=== PATIENT | male | born 1940 | race Caucasian/White ===

== ENCOUNTER 2021-07-28 12:03 | Day surgery (SDC) | payer MEDICARE, OTHER ==
[2021-07-23 12:26] LABS: BASOPHILS % (AUTO) 0.5 % (0-1); EOSINOPHILS # (AUTO) 0.2 X10'3 (0-0.9); EOSINOPHILS % (AUTO) 3.7 % (0-6); HEMATOCRIT 39.9 % (42.0-52.0); HEMOGLOBIN 13.3 g/dl (14.0-17.9); LYMPHOCYTES # (AUTO) 1.8 X10'3 (1.1-4.8); LYMPHOCYTES % (AUTO) 28.3 % (21-51); MEAN CORPUSCULAR HEMOGLOBIN 29.9 PG (27.0-31.0); MEAN CORPUSCULAR HGB CONC 33.2 g/dL (33.0-36.5); MEAN PLATELET VOLUME 8.1 FL (7.4-10.4); MONOCYTES # (AUTO) 0.8 X10'3 (0-0.9); MONOCYTES % (AUTO) 12.6 % (2-12); NEUTROPHILS # (AUTO) 3.4 X10'3 (1.8-7.7); NEUTROPHILS % (AUTO) 54.9 % (42-75); PLATELET COUNT 232 X10'3 (140-440); RED BLOOD COUNT 4.43 X10'6 (4.70-6.10); RED CELL DISTRIBUTION WIDTH 14.7 % (11.5-14.5); WHITE BLOOD COUNT 6.3 X10'3 (4.5-11.0)
[2021-07-23 12:37] LABS: APTT 28 SECONDS (22-32)
[2021-07-23 12:45] LABS: ALANINE AMINOTRANSFERASE 19 U/L (12-78); ALBUMIN 3.9 G/DL (3.4-5.0); ALBUMIN/GLOBULIN RATIO 1.3 (1.1-1.5); ALKALINE PHOSPHATASE 72 IU/L (46-116); ANION GAP 16 (8-16); ASPARTATE AMINO TRANSFERASE 18 U/L (10-37); BILIRUBIN,TOTAL 0.5 MG/DL (0.1-1.0); BLOOD UREA NITROGEN 20 MG/DL (7-18); BUN/CREATININE RATIO 16.4 (5.4-32.0); CALCIUM 8.8 MG/DL (8.5-10.1); CHLORIDE 109 MMOL/L (99-107); CREATININE 1.22 MG/DL (0.60-1.10); GLUCOSE 101 MG/DL (70-104); POTASSIUM 4.8 MMOL/L (3.5-5.1); SODIUM 149 MMOL/L (135-145); TOTAL CARBON DIOXIDE 23.6 MMOL/L (24-32); TOTAL PROTEIN 6.9 G/DL (6.4-8.2); eGFR 57 ML/MIN
[~2021-07-28] VITALS: Ht 162.6 cm; Wt 67.2 kg
[2021-07-28] VITALS (15 sets, daily range): BP systolic 118–164; BP diastolic 73–88
[~2021-07-28 12:03] MED LIST: ALPR0.255 PO; CARV6.253 PO; CLOP75TA34 PO; FLUT1BLS4 INH; ISOS60TA71 PO; LOSA25TA41 PO; NITR0.4T48 SL; OMEP40CA21 PO; PITA4TAB2 PO; POTA-188 PO; SPIR25TA5 PO
[2021-07-28] MEDS ORDERED: diphenhydrAMINE 25mg capsule PO PRN (12:35)
[2021-07-28] MEDS ORDERED: normal saline 1,000 ML IV SCH (12:35)
[2021-07-28] MEDS ORDERED: nitroGLYCERIN 0.4mg SUBLingual tab SL PRN ×2 (12:35→16:45)
[2021-07-28] MEDS ORDERED: fentaNYL/PF 50MCG/1 ML 2ML syringe ONE (14:57)
[2021-07-28] MEDS ORDERED: midazolam 1 mg/ML 2ml injection ONE (14:57)
[2021-07-28] MEDS ORDERED: LIDOcaine 1% (10mg/ml)w/preservative injection 20ml MDV ONE (14:57)
[2021-07-28] MEDS ORDERED: iohexol 350MG/ML 100ml bottle IV ONE ×2 (14:58→15:53)
[2021-07-28] MEDS ORDERED: iohexol 350 MG/ML 50ML vial IV ONE ×2 (14:58→15:52)
--- NOTE | 2021-07-28 16:25 | NUR ---
Received pt from photographic laboratory supervisor. Right groin site stable. No signs of bleeding bruising or hematoma noted. Dressing CD&I. Pedal pulses +.
--- NOTE | 2021-07-28 16:40 | NUR ---
Right groin site stable. No signs of bleeding bruising or hematoma noted. Dressing CD&I. Pedal pulses +.
[2021-07-28] MEDS ORDERED: HYDROcodone/acetaminophen 5mg/325mg tablet PO PRN (16:45)
[2021-07-28] MEDS ORDERED: OXAZEpam 15mg capsule PO PRN (16:45)
[2021-07-28] MEDS ORDERED: HYDROcodone/acetaminophen 10/325mg tab PO PRN (16:45)
[2021-07-28] MEDS ORDERED: ondansetron/PF 4mg/2ml inj IV PRN (16:45)
[2021-07-28] MEDS ORDERED: normal saline 1000ml 1,000 ML IV SCH (16:45)
[2021-07-28] MEDS ORDERED: proCHLORperazine 10 MG/2 ml inj IV PRN (16:45)
--- NOTE | 2021-07-28 16:55 | NUR ---
Right groin site stable. No signs of bleeding bruising or hematoma noted. Dressing CD&I. Pedal pulses +.
--- NOTE | 2021-07-28 17:10 | NUR ---
Right groin site stable. No signs of bleeding bruising or hematoma noted. Dressing CD&I. Pedal pulses +.
--- NOTE | 2021-07-28 17:25 | NUR ---
Right groin site stable. No signs of bleeding bruising or hematoma noted. Dressing CD&I. Pedal pulses +.
--- NOTE | 2021-07-28 17:40 | NUR ---
Right groin site stable. No signs of bleeding bruising or hematoma noted. Dressing CD&I. Pedal pulses +.
--- NOTE | 2021-07-28 21:00 | NUR ---
Myrna at bedside. Written and verbal DC instructions given to pt and , both verbalize understanding. Right groin site stable, no bleeding, bruising or hematoma noted. Drsg CD&I. HOB up to 45 degrees, pt elsa well.
--- NOTE | 2021-07-28 21:35 | NUR ---
Pt sat at EOB, right groin site stable. No bleeding, bruising or hematoma noted. Dressing CD&I. No c/o pain to right groin site.
--- NOTE | 2021-07-28 21:45 | NUR ---
Pt amb in hallway, gait steady. Right groin site stable, no bleeding, bruising or hematoma. Pt returned to room. assisted pt to get dressed.
--- NOTE | 2021-07-28 22:02 | NUR ---
DC pt to home with all belongings with Myrna. Transferred to private car via WC, pt able to transfer self to car, steady on feet. Pt states no pain to right groin site.
== END 2021-07-28 22:02 | disposition home or self-care (01) ==
LOC: SSTAY O 12:03
PROVIDERS: ATTEND Internal Medicine Cardiovascular Disease
DX: R94.39 Abnormal result of other cardiovascular function study (principal); I25.719 Atherosclerosis of autologous vein coronary artery bypass graft(s) with unspecified angina pectoris; I10 Essential (primary) hypertension; J44.9 Chronic obstructive pulmonary disease, unspecified; I25.2 Old myocardial infarction; E78.5 Hyperlipidemia, unspecified; Z85.51 Personal history of malignant neoplasm of bladder; Z95.1 Presence of aortocoronary bypass graft; Z87.891 Personal history of nicotine dependence; Z79.899 Other long term (current) drug therapy; Z79.01 Long term (current) use of anticoagulants
CPT/HCPCS: 36415; 71046; 80053; 85025; 85610; 85730; 93005; 93459; 93567; 99152; 99153; C1760; C1769; J1644; J2250; J3010; J3490; J7030; Q0163; Q9967; A4620; A6258

== ENCOUNTER 2023-03-02 09:47 | Inpatient (IN) | payer MEDICARE, OTHER ==
[~2023-03-02] VITALS: Ht 162.6 cm; Wt 69.1 kg
[~2023-03-02 09:47] MED LIST changes: -ALPR0.255 PO; -FLUT1BLS4 INH; -NITR0.4T48 SL; -OMEP40CA21 PO
--- NOTE | 2023-03-02 09:59 | NUR ---
C-COLLAR PLACED PER DR AVILES
--- NOTE | 2023-03-02 10:14 | NUR ---
PT OFF JORDAN TO CT.
[2023-03-02 10:32] LABS: BASOPHILS # (AUTO) 0.1 X10'3 (0-0.2); EOSINOPHILS # (AUTO) 0.1 X10'3 (0-0.9); EOSINOPHILS % (AUTO) 0.8 % (0-6); HEMATOCRIT 37.7 % (42.0-52.0); HEMOGLOBIN 12.7 g/dl (14.0-17.9); LYMPHOCYTES # (AUTO) 1.2 X10'3 (1.1-4.8); LYMPHOCYTES % (AUTO) 13.7 % (21-51); MEAN CORPUSCULAR HEMOGLOBIN 30.8 PG (27.0-31.0); MEAN CORPUSCULAR HGB CONC 33.6 g/dL (33.0-36.5); MEAN CORPUSCULAR VOLUME 91.5 FL (78-98); MEAN PLATELET VOLUME 7.5 FL (7.4-10.4); MONOCYTES # (AUTO) 1.1 X10'3 (0-0.9); MONOCYTES % (AUTO) 12.9 % (2-12); NEUTROPHILS # (AUTO) 6.1 X10'3 (1.8-7.7); NEUTROPHILS % (AUTO) 71.6 % (42-75); PLATELET COUNT 277 X10'3 (140-440); RED BLOOD COUNT 4.12 X10'6 (4.70-6.10); RED CELL DISTRIBUTION WIDTH 15.3 % (11.5-14.5); WHITE BLOOD COUNT 8.5 X10'3 (4.5-11.0)
[2023-03-02 10:42] LABS: PROTHROMBIN TIME 10.7 SECONDS (9.0-12.0)
[2023-03-02 10:46] LABS: ALANINE AMINOTRANSFERASE 25 U/L (12-78); ALBUMIN 3.2 G/DL (3.4-5.0); ALBUMIN/GLOBULIN RATIO 0.7 (1.1-1.5); ALKALINE PHOSPHATASE 85 IU/L (46-116); ANION GAP 9 (8-16); ASPARTATE AMINO TRANSFERASE 18 U/L (10-37); BILIRUBIN,TOTAL 0.7 MG/DL (0.1-1.0); BLOOD UREA NITROGEN 25 MG/DL (7-18); BUN/CREATININE RATIO 17.9 (10.0-20.0); CALCIUM 9.8 MG/DL (8.5-10.1); CHLORIDE 101 MMOL/L (99-107); GLUCOSE 110 MG/DL (70-104); POTASSIUM 4.5 MMOL/L (3.5-5.1); SODIUM 133 MMOL/L (135-145); TOTAL CARBON DIOXIDE 23.3 MMOL/L (24-32); TOTAL PROTEIN 7.6 G/DL (6.4-8.2); eCRCL 33 ML/MIN; eGFR 48 ML/MIN
[2023-03-02 12:29] LABS: BILIRUBIN,URINE NEGATIVE (Neg); CLARITY,URINE CLOUDY (Clear); COLOR,URINE YELLOW (Yellow); GLUCOSE, URINE NEGATIVE (Neg); KETONES,URINE NEGATIVE (Neg); LEUKOCYTE ESTERASE ,URINE SMALL (Neg); NITRITES, URINE NEGATIVE (Neg); OCCULT BLOOD,URINE LARGE (Neg); PH,URINE 5.5 (4.8-8.0); PROTEIN,URINE 30 mg/dl (Neg); UROBILINOGEN,URINE 0.2 E.U/dL (0.2-1.0)
[2023-03-02 12:38] LABS: UA COLLECTION TYPE FOLEY CATH
[2023-03-02 12:40] LABS: BACTERIA,URINE 1+ /HPF (Neg); MUCUS STRANDS MODERATE /LPF (Neg); RENAL CELLS, URINE FEW /HPF; SQUAMOUS EPITHELIAL CELL,UR FEW /LPF (FEW); TRANSITIONAL EPI CELLS,URINE MODERATE /HPF; WBC CLUMPS,URINE MODERATE /HPF (NEGATIVE); WBC,URINE 50-100 /HPF (0-4)
--- NOTE | 2023-03-02 13:08 | NUR ---
REPORTED TO ER MD DR. AVILES PT REQUESTING TO TAKE C-COLAR OFF. CT REPORT READS NEGATIVE AND RECEIVED VO TO TAKE COLAR OFF
[2023-03-02] MEDS ORDERED: potassium Cl 40MEQ/1/2NS 520ml 520 ML IV PRN (16:35)
[2023-03-02] MEDS ORDERED: potassium Cl 20 mEq SR tablet PO PRN ×2 (16:35)
[2023-03-02] MEDS ORDERED: acetaminophen 325mg tablet PO PRN (16:35)
[2023-03-02] MEDS ORDERED: ipratropium/albuterol 3ml nebule NEB PRN (16:35)
[2023-03-02] MEDS ORDERED: magnesium 2GM in 50ml NS 50 ML IV PRN (16:35)
[2023-03-02] MEDS ORDERED: magnesium 4gm in 100ml NS 100 ML IV PRN (16:35)
[2023-03-02] MEDS ORDERED: PERFLUTREN PROTEIN-A MICROSPHR (Optison) 0.22 MG/ML 3ML VIAL IV ONE (16:35)
[2023-03-02] MEDS ORDERED: ondansetron/PF 4mg/2ml inj IV PRN (16:35)
[2023-03-02] MEDS ORDERED: albuterol 2.5 MG/3 ML nebule NEB PRN ×2 (16:35→20:00)
--- NOTE | 2023-03-02 17:51 | NUR ---
pt given 120ml apple juice
[2023-03-02] MEDS ORDERED: ALPR0.255 PO (18:31)
[2023-03-02] MEDS ORDERED: ALBU17AE26 IH (18:31)
[2023-03-02] MEDS ORDERED: CALC500T11 PO (18:34)
[2023-03-02] MEDS ORDERED: ASPI-611 PO (18:34)
[2023-03-02] MEDS ORDERED: CefTRIAXone 2gm/D5W 50ml BAG 50 ML IV ONE (19:50)
[2023-03-02] MEDS ORDERED: calcium carbonate 500mg chew tablet PO PRN (20:00)
[2023-03-02] MEDS: K and/or MAG REPLACEMENT MC SCH (20:00)
[2023-03-02] MEDS: docusate sod 100mg capsule PO SCH (20:46)
[2023-03-02] MEDS: aspirin 81mg, enteric-coated 1 TAB TABLET.DR PO SCH (20:46)
[2023-03-02] MEDS: carvedilol 6.25mg tablet PO SCH (20:46)
[2023-03-02] MEDS: spironolactone 25 MG tablet PO SCH (20:58)
[2023-03-02] MEDS: ALPRAZolam 0.25mg tablet PO PRN (20:59)
--- NOTE | 2023-03-02 21:02 | NUR ---
pt notified of availible albuterol nebulizer PRN treatments available. pt states no sob at this time.
--- NOTE | 2023-03-02 21:24 | NUR ---
Gave 30 mL of water with night time meds.
[2023-03-02 22:00] VITALS: BP 155/82; PULSE 100; RESP 20; TEMP 97.8; O2SAT 92
[2023-03-02 23:14] VITALS: PULSE 94; RESP 16; O2SAT 95
[2023-03-02 23:23] VITALS: PULSE 90; RESP 16
[2023-03-03] VITALS (7 sets, daily range): BP systolic 83–128; BP diastolic 45–76; PULSE 68–98; RESP 16–20; TEMP 97.9–98.4; O2SAT 93–96
--- NOTE | 2023-03-03 02:25 | NUR ---
Patient in room [facility]TH[facility] 4009. I have received report from PERICO Pimentel and had the opportunity to ask questions and assume patient care.
--- NOTE | 2023-03-03 06:25 | NUR ---
Patient in room [facility]TH[facility] 4009. I have received report from Shelli and had the opportunity to ask questions and assume patient care. Addendum: 03/03/23 at 0651 by Nory Felix RN Received report from Julieta.
--- NOTE | 2023-03-03 06:41 | NUR ---
Problems reprioritized. Patient report given, questions answered & plan of care reviewed with PERICO Cueto.
[2023-03-03 06:51] LABS: BASOPHILS % (AUTO) 0.5 % (0-1); EOSINOPHILS # (AUTO) 0.1 X10'3 (0-0.9); EOSINOPHILS % (AUTO) 0.8 % (0-6); HEMOGLOBIN 12.6 g/dl (14.0-17.9); LYMPHOCYTES # (AUTO) 1.1 X10'3 (1.1-4.8); LYMPHOCYTES % (AUTO) 14.5 % (21-51); MEAN CORPUSCULAR VOLUME 91.3 FL (78-98); MONOCYTES % (AUTO) 12.7 % (2-12); NEUTROPHILS # (AUTO) 5.6 X10'3 (1.8-7.7); NEUTROPHILS % (AUTO) 71.5 % (42-75); PLATELET COUNT 273 X10'3 (140-440); RED BLOOD COUNT 4.05 X10'6 (4.70-6.10); RED CELL DISTRIBUTION WIDTH 15.8 % (11.5-14.5); WHITE BLOOD COUNT 7.8 X10'3 (4.5-11.0)
[2023-03-03 07:31] LABS: ALANINE AMINOTRANSFERASE 24 U/L (12-78); ALBUMIN 2.9 G/DL (3.4-5.0); ALBUMIN/GLOBULIN RATIO 0.7 (1.1-1.5); ALKALINE PHOSPHATASE 78 IU/L (46-116); ANION GAP 9 (8-16); ASPARTATE AMINO TRANSFERASE 18 U/L (10-37); BILIRUBIN,TOTAL 0.6 MG/DL (0.1-1.0); BLOOD UREA NITROGEN 29 MG/DL (7-18); BUN/CREATININE RATIO 20.3 (10.0-20.0); CALCIUM 9.4 MG/DL (8.5-10.1); CHLORIDE 102 MMOL/L (99-107); CREATININE 1.43 MG/DL (0.60-1.10); GLUCOSE 113 MG/DL (70-104); POTASSIUM 4.3 MMOL/L (3.5-5.1); SODIUM 135 MMOL/L (135-145); TOTAL CARBON DIOXIDE 23.6 MMOL/L (24-32); TOTAL PROTEIN 7.2 G/DL (6.4-8.2); eCRCL 32 ML/MIN; eGFR 47 ML/MIN
[2023-03-03] MEDS: docusate sod 100mg capsule PO SCH ×2 (08:00→20:00)
[2023-03-03] MEDS: K and/or MAG REPLACEMENT MC SCH ×2 (08:00→20:00)
[2023-03-03] MEDS: carvedilol 6.25mg tablet PO SCH ×2 (09:19→20:00)
[2023-03-03] MEDS: spironolactone 25 MG tablet PO SCH ×2 (09:20→20:00)
[2023-03-03] MEDS: losartan 25mg tablet PO SCH (09:21)
[2023-03-03] MEDS: isosorbide mononitrate 30mg tab.SR.24H PO SCH (09:21)
[2023-03-03] MEDS: atorvastatin 20mg tablet PO SCH (09:22)
[2023-03-03] MEDS: potassium chloride 10mEq ER tablet PO SCH (09:25)
[2023-03-03] MEDS: CefTRIAXone 2gm/D5W 50ml BAG 50 ML IV SCH (09:26)
[2023-03-03] MEDS: ALPRAZolam 0.25mg tablet PO PRN (13:14)
--- NOTE | 2023-03-03 18:14 | NUR ---
Problems reprioritized. Patient report given, questions answered & plan of care reviewed with Loren.
[2023-03-03] MEDS ORDERED: PERFLUTREN PROTEIN-A MICROSPHR (Optison) 0.22 MG/ML 3ML VIAL IV ONE (19:00)
--- NOTE | 2023-03-03 21:00 | NUR ---
patient blood pressure low prior to med pass, 76/51. patient is asymptomatic, RN yousif Gordon to make aware. Fluid bolus 250ml total ordered and staff is encouraging fluids within fluid restriction Addendum: 03/04/23 at 221 by Loren Raymundo RN patient having low urine output overnight. fluids encouraged Addendum: 03/04/23 at 222 by Loren Raymundo RN BP increased after bolus given 91/55 Addendum: 03/04/23 at 0546 by Loren Raymundo RN PERICO made MD Gordon aware of low urine output over night, said to monitor at this time, no further interventions as of now
[2023-03-03] MEDS ORDERED: normal saline 250ml IV soln 250 ML IV ONE (21:05)
[2023-03-03] MEDS: aspirin 81mg, enteric-coated 1 TAB TABLET.DR PO SCH (21:05)
[2023-03-03] MEDS: Melatonin 3mg tablet PO SCH (22:04)
[2023-03-04] VITALS (9 sets, daily range): BP systolic 91–123; BP diastolic 52–66; PULSE 87–96; RESP 16–18; TEMP 97.4–98.6; O2SAT 90–96
--- NOTE | 2023-03-04 06:16 | NUR ---
Problems reprioritized. Patient report given, questions answered & plan of care reviewed with Nory RIVER.
--- NOTE | 2023-03-04 06:23 | NUR ---
Patient in room [facility]TH[facility] 4009. I have received report from Loren and had the opportunity to ask questions and assume patient care.
[2023-03-04 07:08] LABS: BASOPHILS % (AUTO) 0.4 % (0-1); EOSINOPHILS # (AUTO) 0.1 X10'3 (0-0.9); EOSINOPHILS % (AUTO) 1.2 % (0-6); HEMATOCRIT 33.9 % (42.0-52.0); HEMOGLOBIN 11.5 g/dl (14.0-17.9); LYMPHOCYTES # (AUTO) 1.3 X10'3 (1.1-4.8); LYMPHOCYTES % (AUTO) 13.5 % (21-51); MEAN CORPUSCULAR HEMOGLOBIN 31.1 PG (27.0-31.0); MEAN CORPUSCULAR VOLUME 91.4 FL (78-98); MEAN PLATELET VOLUME 7.8 FL (7.4-10.4); MONOCYTES # (AUTO) 1.1 X10'3 (0-0.9); MONOCYTES % (AUTO) 11.5 % (2-12); NEUTROPHILS # (AUTO) 6.8 X10'3 (1.8-7.7); NEUTROPHILS % (AUTO) 73.4 % (42-75); PLATELET COUNT 276 X10'3 (140-440); RED CELL DISTRIBUTION WIDTH 16.2 % (11.5-14.5); WHITE BLOOD COUNT 9.3 X10'3 (4.5-11.0)
[2023-03-04 07:26] LABS: ALANINE AMINOTRANSFERASE 21 U/L (12-78); ALBUMIN 2.7 G/DL (3.4-5.0); ALBUMIN/GLOBULIN RATIO 0.7 (1.1-1.5); ALKALINE PHOSPHATASE 72 IU/L (46-116); ANION GAP 12 (8-16); ASPARTATE AMINO TRANSFERASE 16 U/L (10-37); BILIRUBIN,TOTAL 0.5 MG/DL (0.1-1.0); BLOOD UREA NITROGEN 48 MG/DL (7-18); BUN/CREATININE RATIO 18.8 (10.0-20.0); CALCIUM 8.5 MG/DL (8.5-10.1); CHLORIDE 101 MMOL/L (99-107); CREATININE 2.55 MG/DL (0.60-1.10); GLUCOSE 106 MG/DL (70-104); MAGNESIUM 1.9 MG/DL (1.5-2.4); POTASSIUM 4.4 MMOL/L (3.5-5.1); SODIUM 132 MMOL/L (135-145); TOTAL CARBON DIOXIDE 19.1 MMOL/L (24-32); TOTAL PROTEIN 6.6 G/DL (6.4-8.2); eCRCL 18 ML/MIN; eGFR 24 ML/MIN
[2023-03-04] MEDS: K and/or MAG REPLACEMENT MC SCH ×2 (08:00→19:43)
[2023-03-04] MEDS: carvedilol 6.25mg tablet PO SCH ×2 (08:00→20:16)
[2023-03-04] MEDS: losartan 25mg tablet PO SCH (08:00)
[2023-03-04] MEDS: spironolactone 25 MG tablet PO SCH ×2 (08:00→20:16)
[2023-03-04] MEDS: docusate sod 100mg capsule PO SCH ×2 (08:00→18:18)
[2023-03-04 08:01] LABS: ANISOCYTOSIS 1+; PLATELET ESTIMATE NORMAL; TOTAL CELLS COUNTED 100
[2023-03-04] MEDS: CefTRIAXone 2gm/D5W 50ml BAG 50 ML IV SCH (09:22)
[2023-03-04] MEDS: potassium chloride 10mEq ER tablet PO SCH (09:28)
[2023-03-04] MEDS: isosorbide mononitrate 30mg tab.SR.24H PO SCH (09:28)
[2023-03-04] MEDS: atorvastatin 20mg tablet PO SCH (09:28)
[2023-03-04] MEDS: sodium bicarbonate (8.4%) inj. 50 MEQ in dextrose 5%-water 1,000 ML IV SCH ×2 (10:09→16:00)
[2023-03-04 14:52] LABS: ALBUMIN 2.6 G/DL (3.4-5.0); ANION GAP 7 (8-16); BLOOD UREA NITROGEN 45 MG/DL (7-18); BUN/CREATININE RATIO 20.3 (10.0-20.0); CALCIUM 8.4 MG/DL (8.5-10.1); CHLORIDE 100 MMOL/L (99-107); CREATININE 2.22 MG/DL (0.60-1.10); GLUCOSE 136 MG/DL (70-104); POTASSIUM 4.2 MMOL/L (3.5-5.1); SODIUM 130 MMOL/L (135-145); TOTAL CARBON DIOXIDE 22.9 MMOL/L (24-32); eCRCL 21 ML/MIN; eGFR 28 ML/MIN
[2023-03-04] MEDS ORDERED: fluconazole 100mg tablet PO ONE (16:35)
[2023-03-04] MEDS: normal saline 1000ml 1,000 ML IV SCH (16:45)
--- NOTE | 2023-03-04 18:09 | NUR ---
Problems reprioritized. Patient report given, questions answered & plan of care reviewed with Don.
--- NOTE | 2023-03-04 18:15 | NUR ---
Patient in room [facility]TH[facility] 4009. I have received report from PERICO AREVALO and had the opportunity to ask questions and assume patient care.
--- NOTE | 2023-03-04 18:44 | NUR ---
Patient in room [facility]TH[facility] 4009. I have received report from Megan. Burkett and had the opportunity to ask questions and assume patient care.
[2023-03-04] MEDS: aspirin 81mg, enteric-coated 1 TAB TABLET.DR PO SCH (20:14)
[2023-03-04] MEDS: Melatonin 3mg tablet PO SCH (20:26)
[2023-03-04] MEDS: ALPRAZolam 0.25mg tablet PO PRN (20:53)
[2023-03-05] MEDS: normal saline 1000ml 1,000 ML IV SCH ×2 (02:34→12:30)
--- NOTE | 2023-03-05 04:57 | NUR ---
I agree with [facility] NURSE physical assessment.
[2023-03-05 06:00] VITALS: BP 130/67; PULSE 62; RESP 16; TEMP 98; O2SAT 95
--- NOTE | 2023-03-05 06:15 | NUR ---
Problems reprioritized. Patient report given, questions answered & plan of care reviewed with Nory Bowens
--- NOTE | 2023-03-05 06:20 | NUR ---
Patient in room [facility]TH[facility] 4009. I have received report from Julieta and had the opportunity to ask questions and assume patient care.
--- NOTE | 2023-03-05 06:22 | NUR ---
Problems reprioritized. Patient report given, questions answered & plan of care reviewed with Nory Burkett RN.
[2023-03-05] MEDS: CefTRIAXone 2gm/D5W 50ml BAG 50 ML IV SCH (07:16)
[2023-03-05] MEDS: K and/or MAG REPLACEMENT MC SCH (07:22)
[2023-03-05] MEDS: docusate sod 100mg capsule PO SCH (07:23)
[2023-03-05 07:27] VITALS: RESP 16; O2SAT 95
[2023-03-05] MEDS: carvedilol 6.25mg tablet PO SCH (07:27)
[2023-03-05] MEDS: spironolactone 25 MG tablet PO SCH (07:27)
[2023-03-05] MEDS: losartan 25mg tablet PO SCH (07:28)
[2023-03-05] MEDS: isosorbide mononitrate 30mg tab.SR.24H PO SCH (07:28)
[2023-03-05] MEDS: atorvastatin 20mg tablet PO SCH (07:28)
[2023-03-05] MEDS: potassium chloride 10mEq ER tablet PO SCH (07:28)
[2023-03-05] MEDS ORDERED: fluconazole 100mg tablet PO SCH (08:00)
[2023-03-05 08:04] VITALS: PULSE 89; RESP 18; O2SAT 95
[2023-03-05 09:06] LABS: BASOPHILS % (AUTO) 0.4 % (0-1); EOSINOPHILS # (AUTO) 0.1 X10'3 (0-0.9); EOSINOPHILS % (AUTO) 1.2 % (0-6); LYMPHOCYTES # (AUTO) 0.8 X10'3 (1.1-4.8); LYMPHOCYTES % (AUTO) 11.2 % (21-51); MEAN CORPUSCULAR HEMOGLOBIN 30.7 PG (27.0-31.0); MEAN CORPUSCULAR HGB CONC 33.4 g/dL (33.0-36.5); MEAN PLATELET VOLUME 7.7 FL (7.4-10.4); MONOCYTES # (AUTO) 0.8 X10'3 (0-0.9); MONOCYTES % (AUTO) 10.2 % (2-12); NEUTROPHILS # (AUTO) 5.7 X10'3 (1.8-7.7); PLATELET COUNT 273 X10'3 (140-440); RED BLOOD COUNT 3.58 X10'6 (4.70-6.10); RED CELL DISTRIBUTION WIDTH 15.8 % (11.5-14.5); WHITE BLOOD COUNT 7.5 X10'3 (4.5-11.0)
[2023-03-05 09:25] LABS: ALANINE AMINOTRANSFERASE 19 U/L (12-78); ALBUMIN 2.5 G/DL (3.4-5.0); ALBUMIN/GLOBULIN RATIO 0.6 (1.1-1.5); ALKALINE PHOSPHATASE 72 IU/L (46-116); ANION GAP 8 (8-16); ASPARTATE AMINO TRANSFERASE 16 U/L (10-37); BILIRUBIN,TOTAL 0.4 MG/DL (0.1-1.0); BLOOD UREA NITROGEN 27 MG/DL (7-18); BUN/CREATININE RATIO 19.9 (10.0-20.0); CALCIUM 8.1 MG/DL (8.5-10.1); CHLORIDE 106 MMOL/L (99-107); CREATININE 1.36 MG/DL (0.60-1.10); GLUCOSE 127 MG/DL (70-104); MAGNESIUM 1.9 MG/DL (1.5-2.4); POTASSIUM 4.3 MMOL/L (3.5-5.1); SODIUM 136 MMOL/L (135-145); TOTAL CARBON DIOXIDE 21.9 MMOL/L (24-32); TOTAL PROTEIN 6.4 G/DL (6.4-8.2); eCRCL 34 ML/MIN; eGFR 50 ML/MIN
[2023-03-05 10:48] VITALS: BP 99/57; PULSE 77; RESP 16; TEMP 98.4; O2SAT 92
[2023-03-05] MEDS ORDERED: FLUC200T28 PO (11:33)
--- NOTE | 2023-03-05 14:07 | NUR ---
Reviewed discharge instructions with patient and his spouse. Patent verbalized understanding. Patient's spouse assisted patient with getting dressed. This typewriter ribbon winder adjusted the patient's new walker to the appropriate height for patient. Patient's spouse gathered patient's belongings. Patient was wheeled downstairs by staff to be driven home by his spouse.
== END 2023-03-05 14:07 | disposition home health service (06) | DRG 698 ==
LOC: ER 09:47 → ED HOLD 16:37 → ORTHO 4S 21:50
PROVIDERS: ADMIT Family Medicine; ATTEND Family Medicine
DX: T83.511A Infection and inflammatory reaction due to indwelling urethral catheter, initial encounter (principal); N17.0 Acute kidney failure with tubular necrosis; B37.49 Other urogenital candidiasis; E87.20 Acidosis, unspecified; C67.9 Malignant neoplasm of bladder, unspecified; I25.10 Atherosclerotic heart disease of native coronary artery without angina pectoris; Y84.6 Urinary catheterization as the cause of abnormal reaction of the patient, or of later complication, without mention of misadventure at the time of the procedure; E78.5 Hyperlipidemia, unspecified; I50.9 Heart failure, unspecified; J44.9 Chronic obstructive pulmonary disease, unspecified; I25.2 Old myocardial infarction; Y92.89 Other specified places as the place of occurrence of the external cause; Z87.891 Personal history of nicotine dependence; Z95.1 Presence of aortocoronary bypass graft; Z95.5 Presence of coronary angioplasty implant and graft; Z79.899 Other long term (current) drug therapy; Z79.82 Long term (current) use of aspirin
CPT/HCPCS: 36415; 70450; 71045; 72125; 72131; 74176; 80048; 80053; 81001; 83605; 83735; 84145; 85007; 85025; 85610; 87040; 87077; 87081; 87088; 87186; 94640; 94760; 97110; 97116; 97161; 97530; 97535; 99285; A5200; G0378; J0696; J3490; J7030; J7050; J7070